=== PATIENT | female | born 1980 | race Caucasian/White ===

== ENCOUNTER 2022-01-05 17:09 | Emergency (ER) | payer OTHER ==
--- NOTE | 2022-01-05 18:53 | XR ---
EXAMINATION TYPE: XR Hip Complete LT DATE OF EXAM: 01/05/2022 6:11 PM INDICATION: Patient age:Female; 42 years old; Reason for study: pain; COMPARISON: None. TECHNIQUE: The left hip was examined in the frontal and lateral projections FINDINGS: No evidence of any acute osseous pathology, joint dislocation, or soft tissue swelling. IMPRESSION: No acute osseous pathology.
[2022-01-05] MEDS ORDERED: ONDANSETRON 4 MG ODT STARTER PACK 2 TAB BTL PO STA (20:22)
[2022-01-05] MEDS ORDERED: HYDROmorphone 1 MG/ML 1 ML SYRINGE IM STA (20:22)
--- NOTE | 2022-01-05 20:24 | ED ---
General Adult HPI - General Chief complaint: Extremity Problem,Nontraumatic Stated complaint: Hip pain Time Seen by Provider: 01/05/22 20:04 Source: patient, RN notes reviewed Mode of arrival: wheelchair Limitations: no limitations - History of Present Illness Initial comments: 42-year-old female presents to the emergency department for evaluation of left hip pain that radiates to the groin and the back. Pain has been ongoing for the past 3 weeks and has progressively worsened. States she was recently prescribed a steroid by her PCP, though feels that this did nothing for her. Patient takes Motrin, Neurontin, and Flexeril daily for other non-related complaints. Denies any recent injury or trauma. States pain is worse with weight bearing activity. Denies fever, chills, chest pain, shortness of breath, difficulty breathing, abdominal pain, nausea, vomiting, diarrhea, loss of bowel or bladder control, saddle anesthesia, or foot drop. - Related Data Home Medications Medication Instructions Recorded Confirmed Atorvastatin Calcium [Lipitor] 40 mg PO HS 01/05/22 01/05/22 Cyclobenzaprine [Flexeril] 10 mg PO TID 01/05/22 01/05/22 Fluticasone Nasal [place] [Flonase 1 spray EA NOSTRIL DAILY 01/05/22 01/05/22 Nasal [place]] Gabapentin [Neurontin] 600 mg PO TID 01/05/22 01/05/22 Ibuprofen [Motrin] 800 mg PO TID PRN 01/05/22 01/05/22 Lurasidone [Latuda] 80 mg PO HS 01/05/22 01/05/22 Multivitamins, Thera [Multivitamin 1 tab PO DAILY 01/05/22 01/05/22 (formulary)] Omeprazole 20 mg PO DAILY 01/05/22 01/05/22 Propranolol HCl 20 mg PO TID 01/05/22 01/05/22 Venlafaxine HCl ER [Effexor Xr] 150 mg PO DAILY 01/05/22 01/05/22 hydrOXYzine pamoate [Vistaril] 150 mg PO HS 01/05/22 01/05/22 traZODone HCL 200 mg PO HS 01/05/22 01/05/22 Allergies Allergy/AdvReac Type Severity Reaction Status Date / Time Penicillins Allergy Anaphylaxis Verified 03/17/22 23:31 Sulfa (Sulfonamide Allergy Rash/Hives Verified 01/05/22 21:44 Antibiotics) Review of Systems ROS Statement: Those systems with pertinent positive or pertinent negative responses have been documented in the HPI. ROS Other: All systems not noted in ROS Statement are negative. Past Medical History Past Medical History: GERD/Reflux, Hyperlipidemia, Hypertension, Supraventricular Tachycardia (SVT) Additional Past Medical History / Comment(s): chronic back pain History of Any Multi-Drug Resistant Organisms: None Reported Past Psychological History: Bipolar, Depression Smoking Status: Vaper Past Alcohol Use History: None Reported Past Drug Use History: None Reported General Exam Limitations: no limitations (Well-developed, well-nourished female in no acute distress. Initial temperature and 1, respirations 16, blood pressure 156, pulse ox 99% on room air.) General appearance: alert, in no apparent distress Neck exam: Present: normal inspection. Absent: tenderness, meningismus, lymphadenopathy Respiratory exam: Present: normal lung sounds bilaterally. Absent: respiratory distress, wheezes, rales, rhonchi, stridor Cardiovascular Exam: Present: regular rate, normal rhythm, normal heart sounds. Absent: systolic murmur, diastolic murmur, rubs, gallop, clicks GI/Abdominal exam: Present: soft, normal bowel sounds. Absent: distended, tenderness, guarding, rebound, rigid Extremities exam: Present: normal capillary refill. Absent: pedal edema Left Hip exam: Present: normal inspection, pelvic stability. Absent: full ROM, tenderness, swelling, deformity, external rotation, internal rotation, shortening Upper Leg exam: Present: normal inspection, full ROM. Absent: tenderness, swelling Knee exam: Present: normal inspection, full ROM. Absent: tenderness, swelling Lower Leg exam: Present: normal inspection, full ROM. Absent: tenderness, swelling, Homans' sign Ankle exam: Present: normal inspection, full ROM. Absent: tenderness, swelling Foot/Toe exam: Present: normal inspection, full ROM. Absent: tenderness, swelling Neurovascular tendon exam: Present: no vascular compromise. Absent: sensory deficit Back exam: Present: normal inspection, paraspinal tenderness ( pain upon palpation of the right lumbar paraspinal muscles). Absent: CVA tenderness (R), CVA tenderness (L), vertebral tenderness Expanded Back exam: Absent: saddle anesthesia Back exam: Positive Straight Leg Raise: Right, Negative Straight Leg Raising: Left Neurological exam: Present: alert, oriented X3 Psychiatric exam: Present: anxious Skin exam: Present: warm, dry, intact, normal color Course Vital Signs 01/05/22 01/05/22 17:42 22:58 Temperature 98 F 97.7 F Pulse Rate 91 85 Respiratory 16 18 Rate Blood Pressure 118/76 125/60 O2 Sat by Pulse 99 95 Oximetry - Reevaluation(s) Reevaluation #1: 01/05/22 22:30 Upon reevaluation, patient is resting much more comfortably. States pain is tolerable and She is able to move more freely. Discussed discharge home to keep follow-up appointment as scheduled with her neurologist. Discussed radiculopathy nature of the pain she is experiencing based on the physical exam findings. Suggested a repeat course of steroid as patient is already taking an anti-inflammatory and muscle relaxer; she declines. Explained that no narcotic pain medications would be prescribed and that she would need to follow up for further evaluation and treatment. Patient was agreeable with this plan of care. Medical Decision Making - Medical Decision Making 42-year-old female with a past medical history of chronic back pain and seizure disorder presents to the emergency Department with complaints of left hip pain 3 weeks. Upon exam, patient is well-appearing and in no distress. She does rate her pain a 9 out of 10 at this time. Physical exam findings reveal a positive straight leg raise test in which elevating the left leg caused the pain to be reproduced in the right. There was no injury preceding the onset of pain. There is no observable joint abnormality. Hip x-ray was unremarkable. Patient is afebrile with no foot drop, saddle anesthesia, or loss of bowel or bladder control. Patient is already taking Motrin, Flexeril, Neurontin for chronic low back pain. She was given a dose of Dilaudid with significant improvement. Mcintosh was given prior to departure for further pain control. I explained that no narcotics would be prescribed from the ER and that she should continue taking her home medications as prescribed. Did discuss a repeat course of oral steroid, however patient declined as this was ineffective previously. Encouraged to keep follow-up appointment with neurologist as scheduled. Also given follow-up with orthopedics as requested. Return parameters were discussed in detail. Patient verbalizes understanding and agrees with this plan. Attending: Hunter. - Radiology Data Radiology results: report reviewed, image reviewed X-ray of the left hip was obtained. Report was reviewed in its entirety. Impression per Dr. Hein is no acute osseous pathology. Disposition Clinical Impression: Left hip pain, Lumbar radiculopathy, acute Disposition: HOME SELF-CARE Condition: Stable Instructions (If sedation given, give patient instructions): Lumbar Radiculopathy (ED), Hip Pain (ED) Additional Instructions: Gentle range of motion exercises to the left hip. Continue taking your home medications as prescribed. Follow up as scheduled. Call your PCP for further evaluation and treatment. Return to the emergency department with any new, worsening, or concerning symptoms. Is patient prescribed a controlled substance at d/c from ED?: No Referrals: Kate Lopez MD [Primary Care Provider] - 1-2 days [facility] [Provider Group] - 1-2 days Time of Disposition: 22:50
[2022-01-05] MEDS ORDERED: HYDROcodone/APAP 5-325MG 1 EACH TAB PO STA (22:39)
[2022-01-05 23:02] VITALS: BP 125/60; PULSE 85; RESP 18; TEMP 97.7
== END 2022-01-05 23:02 | disposition home or self-care (01) ==
LOC: EC 17:09
DX: M25.552 Pain in left hip (principal); M54.16 Radiculopathy, lumbar region; K21.9 Gastro-esophageal reflux disease without esophagitis; E78.5 Hyperlipidemia, unspecified; I10 Essential (primary) hypertension; F31.9 Bipolar disorder, unspecified; F17.290 Nicotine dependence, other tobacco product, uncomplicated; Z88.0 Allergy status to penicillin; Z88.2 Allergy status to sulfonamides
CPT/HCPCS: 99284; 96372; 73502; J1170; S0119

== ENCOUNTER → 2024-01-04 | Outpatient (CLI) | payer OTHER ==
--- NOTE | 2024-01-07 15:37 | US ---
EXAMINATION TYPE: US abdomen limited DATE OF EXAM: 01/04/2024 COMPARISON: NONE CLINICAL INDICATION: Female, 44 years old with history of Z78.9 OTHER SPECIFIED ABNORMAL FINDINGS OF BR79.89; LFT's, alcohol TECHNIQUE: Multiple sonographic images of the right upper quadrant are obtained. FINDINGS: EXAM MEASUREMENTS: Liver Length: 20.1 cm Gallbladder Wall: 0.2 cm CBD: 0.5 cm Right Kidney: 10.4x3.2x5.8 cm PER DIEM CLERK NOTES: exam limited by bowel and body habitus Pancreas: Surgically absent Liver: increased size, echogenicity, and attenuation Gallbladder: 1.6 cm gallstone. No abnormal distention, wall thickening, or surrounding fluid. Evidence for sonographic Marti's sign: No CBD: wnl Right Kidney: No hydronephrosis or masses seen IMPRESSION: 1. Hepatomegaly at 20.1 cm with moderate to severe hepatic steatosis. Appropriate clinical management is advised. 2. A 1.6 cm gallstone. 3. No biliary ductal dilatation.
== END | disposition home or self-care (01) ==
LOC: RADUSWWP 12:08
PROVIDERS: ATTEND Family Medicine
DX: K80.20 Calculus of gallbladder without cholecystitis without obstruction (principal); K76.0 Fatty (change of) liver, not elsewhere classified; R16.0 Hepatomegaly, not elsewhere classified; R79.89 Other specified abnormal findings of blood chemistry; Z78.9 Other specified health status
CPT/HCPCS: 76705

== ENCOUNTER → 2024-02-18 | Outpatient (CLI) | payer OTHER ==
--- NOTE | 2024-02-18 18:12 | US ---
EXAMINATION TYPE: US thyroid st tissue head/neck DATE OF EXAM: 02/18/2024 COMPARISON: NONE CLINICAL INDICATION: Female, 44 years old with history of E04.1 THYROID NODULE; Oropharyngeal dysphag ia GLAND SIZE: Right Lobe: 4.8 x 1.6 x 1.6 cm Overall Parenchyma: heterogeneous Left Lobe: 3.6 x 1.4 x 1.5 cm Overall Parenchyma: heterogeneous Isthmus Thickness: 0.2 cm NODULES RIGHT: # of nodules measured on right: 0 LEFT: # of nodules measured on left: 1 1. 0.7 X 0.3 x 0.2 cm, mid mid Prior size: No prior TIRADS Score: 3 TIRADS Category 3: Composition: Solid or almost completely solid (2 points). Echogenicity: Hyperechoic or isoechoic (1 point). Shape: Wider than tall (0 points). Margin: Smooth (0 points). Echogenic foci: None or large comet-tail artifacts (0 points) Recommendation: If >2.5cm: FNA; If >1.5cm: Follow up at 1,3,5 years ISTHMUS: # of nodules measured in the isthmus: 0 Bilateral neck scanned, *Hypoechoic area seen lateral right neck: 1.2 x 0.5 x 0.5 cm. IMPRESSION: Left thyroid nodule image criteria for follow-up.
== END | disposition home or self-care (01) ==
LOC: RADUSWWP 15:18
PROVIDERS: ATTEND Family Medicine
DX: E04.1 Nontoxic single thyroid nodule (principal); R13.12 Dysphagia, oropharyngeal phase
CPT/HCPCS: 76536

== ENCOUNTER 2024-03-17 17:36 | Emergency (ER) | payer OTHER ==
--- NOTE | 2024-03-17 18:25 | ED ---
Weakness HPI - General Chief complaint: Neuro Symptoms/Deficit Stated complaint: Constipation Time Seen by Provider: 03/17/24 17:49 Source: patient, family, RN notes reviewed, old records reviewed Mode of arrival: ambulatory Limitations: no limitations - History of Present Illness Initial comments: This 44-year-old female to the ER for evaluation. Patient midstate for evaluation of any numbness and tingling of the hands. Severe pain of both hands numbness tingling of the fingers going on for 6 days with decreased appetite decreased oral intake and has not been feeling well. Patient also states she feels she has not had a significant bowel movement in about over a week patient has high blood pressure and high cholesterol with no history abdominal surgery MD Complaint: generalized weakness, numbness, tingling (Numbness and tingling of the hands) -: days(s) Location: generalized, L hand, R hand Severity: moderate Severity scale (1-10): 7 Consistency: constant Improves with: none Context: recent illness, history of similar Associated Symptoms: chest pain - Related Data Home Medications Medication Instructions Recorded Confirmed Atorvastatin Calcium [Lipitor] 40 mg PO HS 01/05/22 01/08/22 Cyclobenzaprine [Flexeril] 10 mg PO TID 01/05/22 01/08/22 Fluticasone Nasal [place] [Flonase 1 spray EA NOSTRIL DAILY 01/05/22 01/08/22 Nasal [place]] Gabapentin [Neurontin] 600 mg PO TID 01/05/22 01/08/22 Ibuprofen [Motrin] 800 mg PO TID PRN 01/05/22 01/08/22 Lurasidone [Latuda] 80 mg PO HS 01/05/22 01/08/22 Multivitamins, Thera [Multivitamin 1 tab PO DAILY 01/05/22 01/08/22 (formulary)] Omeprazole 20 mg PO DAILY 01/05/22 01/08/22 Propranolol HCl 20 mg PO TID 01/05/22 01/08/22 Venlafaxine HCl ER [Effexor Xr] 150 mg PO DAILY 01/05/22 01/08/22 hydrOXYzine pamoate [Vistaril] 150 mg PO HS 01/05/22 01/08/22 traZODone HCL 200 mg PO HS 01/05/22 01/08/22 Allergies Allergy/AdvReac Type Severity Reaction Status Date / Time Penicillins Allergy Anaphylaxis Verified 01/08/22 14:13 Sulfa (Sulfonamide Allergy Rash/Hives Verified 01/08/22 14:13 Antibiotics) Review of Systems ROS Statement: Those systems with pertinent positive or pertinent negative responses have been documented in the HPI. ROS Other: All systems not noted in ROS Statement are negative. Past Medical History Past Medical History: GERD/Reflux, Hyperlipidemia, Hypertension, Supraventricular Tachycardia (SVT) Additional Past Medical History / Comment(s): chronic back pain History of Any Multi-Drug Resistant Organisms: None Reported Past Surgical History: Orthopedic Surgery Past Psychological History: Bipolar, Depression Smoking Status: Vaper Past Alcohol Use History: None Reported Past Drug Use History: None Reported General Exam Limitations: no limitations General appearance: alert, in no apparent distress Head exam: Present: atraumatic, normocephalic, normal inspection Eye exam: Present: normal appearance, PERRL, EOMI. Absent: scleral icterus, conjunctival injection, periorbital swelling ENT exam: Present: normal exam, mucous membranes moist Neck exam: Present: normal inspection. Absent: tenderness, meningismus, lymphadenopathy Respiratory exam: Present: normal lung sounds bilaterally. Absent: respiratory distress, wheezes, rales, rhonchi, stridor Cardiovascular Exam: Present: regular rate, normal rhythm, normal heart sounds. Absent: systolic murmur, diastolic murmur, rubs, gallop, clicks GI/Abdominal exam: Present: soft, normal bowel sounds. Absent: distended, tenderness, guarding, rebound, rigid Extremities exam: Present: normal inspection, full ROM, normal capillary refill. Absent: tenderness, pedal edema, joint swelling, calf tenderness Back exam: Present: normal inspection Neurological exam: Present: alert, oriented X3, CN II-XII intact Psychiatric exam: Present: normal affect, normal mood Skin exam: Present: warm, dry, intact, normal color. Absent: rash Course Vital Signs 03/17/24 03/17/24 17:41 22:05 Temperature 98.6 F 98.3 F Pulse Rate 110 H 99 Respiratory 20 16 Rate Blood Pressure 115/69 131/80 O2 Sat by Pulse 998 H 95 Oximetry - Reevaluation(s) Reevaluation #1: 03/17/24 18:25 Medical records reviewed Reevaluation #2: 03/17/24 21:53 Patient symptoms are improved here in the ER Reevaluation #3: 03/17/24 21:53 Patient informed of results questions answered Reevaluation #4: Was pt. sent in by a medical professional or institution (JAZ Palomo, INSTRUMENT CALIBRATOR, urgent care, hospital, or custodial...) When possible be specific @ -no Did you speak to anyone other than the patient for history (EMS, parent, family, police, friend...)? What history was obtained from this source @ -no Did you review nursing and triage notes (agree or disagree)? Why? @ -agree Are old charts reviewed (outside hosp., previous admission, EMS record, old EKG, old radiological studies, urgent care reports/EKG's, custodial records)? Report findings @ -yes Differential Diagnosis (chest pain, altered mental status, abdominal pain women, abdominal pain men, vaginal bleeding, weakness, fever, dyspnea, syncope, headache, dizziness, GI bleed, back pain, seizure, CVA, palpatations, mental health, musculoskeletal)? @ -prior EKG interpreted by me (3pts min.). @ -yes X-rays interpreted by me (1pt min.). @ -yes negative for acute disease CT interpreted by me (1pt min.). @ -no U/S interpreted by me (1pt. min.). @ -Yes negative for acute disease What testing was considered but not performed or refused? (CT, X-rays, U/S, labs)? Why? @ -none What meds were considered but not given or refused? Why? @ -none Did you discuss the management of the patient with other professionals (professionals i.e. JAZ Palomo, INSTRUMENT CALIBRATOR, lab, RT, psych nurse, executive secretary social welfare, plant guide, teacher, bank compliance officer, case work aide)? Give summary @ -no Was smoking cessation discussed for >3mins.? @ -no Was critical care preformed (if so, how long)? @ -no Were there social determinants of health that impacted care today? How? (Homelessness, low income, unemployed, alcoholism, drug addiction, transportation, low edu. Level, literacy, decrease access to med. care, [facility], rehab)? @ -none Was there de-escalation of care discussed even if they declined (Discuss DNR or withdrawal of care, Hospice)? DNR status @ -no What co-morbidities impacted this encounter? (DM, HTN, Smoking, COPD, CAD, Cancer, CVA, ARF, Chemo, Hep., AIDS, mental health diagnosis, sleep apnea, morbid obesity)? @ -none Was patient admitted / discharged? Hospital course, mention meds given and route, prescriptions, significant lab abnormalities, going to OR and other pertinent info. @ - 44 female to the ER for evaluation of numbness and tingling abdominal pain no history of recent bowel movement. Patient states she feels improved here in the ER and can be discharged home Discharge Undiagnosed new problem with uncertain prognosis? @ -no Drug Therapy requiring intensive monitoring for toxicity (Heparin, Nitro, Insulin, Cardizem)? @ -no Were any procedures done? @ -no Diagnosis/symptom? @ -Paresthesias, abdominal pain Acute, or Chronic, or Acute on Chronic? @ -Acute Uncomplicated (without systemic symptoms) or Complicated (systemic symptoms)? @ -Complicated Side effects of treatment? @ -no Exacerbation, Progression, or Severe Exacerbation? @ -exacerbation Poses a threat to life or bodily function? How? (Chest pain, [place], [place], pneumonia, PE, COPD, DKA, ARF, appy, cholecystitis, CVA, Diverticulitis, Homicidal, Suic idal, threat to staff... and all critical care pts) @ -yes with multiple complaints including abdominal pain and chest pain Reevaluation #5: Differential Abdominal Pain Men: Appendicitis, cholecystitis, diverticulosis, ischemic bowel, pancreatitis, hepatitis, UTI, gastroenteritis, AAA, incarcerated hernia, bowel obstruction, constipation, inflammatory bowel, hepatitis, peptic ulcer disease, splenic infarction, perforated viscus, testicular torsion, this is not meant to be an all-inclusive list EKG Findings - EKG Comments: EKG Findings:: EKG is sinus tachycardia 102 KS 148 QRS 82 QTc 452 - EKG Results: EKG: interpreted by DIANA Medical Decision Making - Medical Decision Making 44 female to the ER for evaluation of numbness and tingling abdominal pain no history of recent bowel movement. Patient states she feels improved here in the ER and can be discharged home - Lab Data Result diagrams: 03/17/24 18:55 03/17/24 18:55 Lab Results 03/17/24 03/17/24 03/17/24 Range/Units 18:55 18:55 18:55 WBC 13.5 H (3.8-10.6) k/uL RBC 4.64 (3.80-5.40) m/uL Hgb 14.3 (11.4-16.0) gm/dL Hct 46.3 H (34.0-46.0) % MCV 99.8 (80.0-100.0) fL MCH 30.9 (25.0-35.0) pg MCHC 30.9 L (31.0-37.0) g/dL RDW 16.2 H (11.5-15.5) % Plt Count 475 H (150-450) k/uL MPV 7.6 Neutrophils % 72 % Lymphocytes % 18 % Monocytes % 7 % Eosinophils % 1 % Basophils % 1 % Neutrophils # 9.7 H (1.3-7.7) k/uL Lymphocytes # 2.5 (1.0-4.8) k/uL Monocytes # 0.9 (0-1.0) k/uL Eosinophils # 0.1 (0-0.7) k/uL Basophils # 0.1 (0-0.2) k/uL Anisocytosis Slight Macrocytosis Slight PT 11.3 (10.0-12.5) sec INR 1.0 (<1.2) APTT 27.4 (22.0-30.0) sec Sodium 139 (137-145) mmol/L Potassium 3.6 (3.5-5.1) mmol/L Chloride 102 (98-107) mmol/L Carbon Dioxide 28 (22-30) mmol/L Anion Gap 9 mmol/L BUN 3 L (7-17) mg/dL Creatinine 0.38 L (0.52-1.04) mg/dL Est GFR (CKD-EPI)AfAm >90 (>60 ml/min/1.73 sqM) Est GFR (CKD-EPI)NonAf >90 (>60 ml/min/1.73 sqM) Glucose 100 H (74-99) mg/dL Lactic Ac Sepsis Rflx Plasma Lactic Acid Jose Luis (0.7-2.0) mmol/L Calcium 9.0 (8.4-10.2) mg/dL Phosphorus 3.9 (2.5-4.5) mg/dL Magnesium 1.9 (1.6-2.3) mg/dL Total Bilirubin 1.4 H (0.2-1.3) mg/dL AST 183 H (14-36) U/L ALT 43 H (4-34) U/L Alkaline Phosphatase 260 H (38-126) U/L Troponin I (0.000-0.034) ng/mL NT-Pro-B Natriuret Pep 296 pg/mL Total Protein 8.4 H (6.3-8.2) g/dL Albumin 3.8 (3.5-5.0) g/dL 03/17/24 03/17/24 03/17/24 Range/Units 18:55 18:55 19:30 WBC (3.8-10.6) k/uL RBC (3.80-5.40) m/uL Hgb (11.4-16.0) gm/dL Hct (34.0-46.0) % MCV (80.0-100.0) fL MCH (25.0-35.0) pg MCHC (31.0-37.0) g/dL RDW (11.5-15.5) % Plt Count (150-450) k/uL MPV Neutrophils % % Lymphocytes % % Monocytes % % Eosinophils % % Basophils % % Neutrophils # (1.3-7.7) k/uL Lymphocytes # (1.0-4.8) k/uL Monocytes # (0-1.0) k/uL Eosinophils # (0-0.7) k/uL Basophils # (0-0.2) k/uL Anisocytosis Macrocytosis PT (10.0-12.5) sec INR (<1.2) APTT (22.0-30.0) sec Sodium (137-145) mmol/L Potassium (3.5-5.1) mmol/L Chloride (98-107) mmol/L Carbon Dioxide (22-30) mmol/L Anion Gap mmol/L BUN (7-17) mg/dL Creatinine (0.52-1.04) mg/dL Est GFR (CKD-EPI)AfAm (>60 ml/min/1.73 sqM) Est GFR (CKD-EPI)NonAf (>60 ml/min/1.73 sqM) Glucose (74-99) mg/dL Lactic Ac Sepsis Rflx Y Plasma Lactic Acid Jose Luis 3.7 H* (0.7-2.0) mmol/L Calcium (8.4-10.2) mg/dL Phosphorus (2.5-4.5) mg/dL Magnesium (1.6-2.3) mg/dL Total Bilirubin (0.2-1.3) mg/dL AST (14-36) U/L ALT (4-34) U/L Alkaline Phosphatase (38-126) U/L Troponin I <0.012 (0.000-0.034) ng/mL NT-Pro-B Natriuret Pep pg/mL Total Protein (6.3-8.2) g/dL Albumin (3.5-5.0) g/dL 03/17/24 Range/Units 21:38 WBC (3.8-10.6) k/uL RBC (3.80-5.40) m/uL Hgb (11.4-16.0) gm/dL Hct (34.0-46.0) % MCV (80.0-100.0) fL MCH (25.0-35.0) pg MCHC (31.0-37.0) g/dL RDW (11.5-15.5) % Plt Count (150-450) k/uL MPV Neutrophils % % Lymphocytes % % Monocytes % % Eosinophils % % Basophils % % Neutrophils # (1.3-7.7) k/uL Lymphocytes # (1.0-4.8) k/uL Monocytes # (0-1.0) k/uL Eosinophils # (0-0.7) k/uL Basophils # (0-0.2) k/uL Anisocytosis Macrocytosis PT (10.0-12.5) sec INR (<1.2) APTT (22.0-30.0) sec Sodium (137-145) mmol/L Potassium (3.5-5.1) mmol/L Chloride (98-107) mmol/L Carbon Dioxide (22-30) mmol/L Anion Gap mmol/L BUN (7-17) mg/dL Creatinine (0.52-1.04) mg/dL Est GFR (CKD-EPI)AfAm (>60 ml/min/1.73 sqM) Est GFR (CKD-EPI)NonAf (>60 ml/min/1.73 sqM) Glucose (74-99) mg/dL Lactic Ac Sepsis Rflx Plasma Lactic Acid Jose Luis 1.0 (0.7-2.0) mmol/L Calcium (8.4-10.2) mg/dL Phosphorus (2.5-4.5) mg/dL Magnesium (1.6-2.3) mg/dL Total Bilirubin (0.2-1.3) mg/dL AST (14-36) U/L ALT (4-34) U/L Alkaline Phosphatase (38-126) U/L Troponin I (0.000-0.034) ng/mL NT-Pro-B Natriuret Pep pg/mL Total Protein (6.3-8.2) g/dL Albumin (3.5-5.0) g/dL - EKG Data -: EKG Interpreted by Me - Radiology Data Radiology results: report reviewed (X-ray KUB and chest negative for acute disease pelvis ultrasound gallbladder negative for acute disease), image reviewed Disposition Clinical Impression: Paresthesia and pain of both upper extremities, Abdominal pain, Neuropathy Disposition: HOME SELF-CARE Condition: Good Instructions (If sedation given, give patient instructions): Paresthesia (ED), Abdominal Pain (ED) Is patient prescribed a controlled substance at d/c from ED?: No Referrals: Kate Lopez MD [Primary Care Provider] - 1-2 days Time of Disposition: 22:00
[2024-03-17] MEDS: SODIUM CHLORIDE 0.9% 1,000 ML IV STA ×2 (18:58→21:07)
[2024-03-17 19:04] LABS: Anisocytosis Slight; Basophils # (A) 0.1 k/uL (0-0.2); Basophils % (A) 1 %; Eosinophils # (A) 0.1 k/uL (0-0.7); Eosinophils % (A) 1 %; HCT 46.3 % (34.0-46.0); HGB 14.3 gm/dL (11.4-16.0); Lymphocytes # (A) 2.5 k/uL (1.0-4.8); Lymphocytes % (A) 18 %; MCH 30.9 pg (25.0-35.0); MCHC 30.9 g/dL (31.0-37.0); MCV 99.8 fL (80.0-100.0); Macrocytosis Slight; Mean Platelet Volume 7.6; Monocytes # (A) 0.9 k/uL (0-1.0); Monocytes % (A) 7 %; Neutrophils # (A) 9.7 k/uL (1.3-7.7); Neutrophils % (A) 72 %; Platelet Count 475 k/uL (150-450); RBC 4.64 m/uL (3.80-5.40); RDW 16.2 % (11.5-15.5); WBC 13.5 k/uL (3.8-10.6)
[2024-03-17 19:13] LABS: Partial Thromboplastin Time 27.4 sec (22.0-30.0); Prothrombin Time 11.3 sec (10.0-12.5)
[2024-03-17 19:17] LABS: ALT 43 U/L (4-34); African American GFR (CKD) >90 (>60 ml/min/1.73 sqM); Albumin 3.8 g/dL (3.5-5.0); Anion Gap 9 mmol/L; Blood Urea Nitrogen 3 mg/dL (7-17); Carbon Dioxide 28 mmol/L (22-30); Chloride 102 mmol/L (98-107); Glucose 100 mg/dL (74-99); Non-African American GFR(CKD) >90 (>60 ml/min/1.73 sqM); Phosphorus 3.9 mg/dL (2.5-4.5); Sodium 139 mmol/L (137-145); Total Bilirubin 1.4 mg/dL (0.2-1.3); Total Protein 8.4 g/dL (6.3-8.2)
[2024-03-17 19:18] LABS: AST 183 U/L (14-36); Alkaline Phosphatase 260 U/L (38-126); Magnesium 1.9 mg/dL (1.6-2.3); Potassium 3.6 mmol/L (3.5-5.1)
[2024-03-17 19:25] LABS: NT-Pro-B-Type Natriuretic Pept 296 pg/mL
--- NOTE | 2024-03-17 19:45 | XR ---
EXAMINATION TYPE: XR chest 2V DATE OF EXAM: 03/17/2024 6:46 PM CLINICAL INDICATION:Female, 44 years old with history of pain; [facility] COMPARISON: None TECHNIQUE: XR chest 2V Frontal and lateral views of the chest. FINDINGS: Lungs/Pleura: There is no evidence of pleural effusion, focal consolidation, or pneumothorax. Pulmonary vascularity: Unremarkable. Heart/mediastinum: Cardiomediastinal silhouette is unremarkable. Musculoskeletal: No acute osseous pathology. IMPRESSION: No acute cardiopulmonary disease/process.
--- NOTE | 2024-03-17 19:46 | XR ---
EXAMINATION TYPE: XR KUB DATE OF EXAM: 03/17/2024 6:46 PM CLINICAL INDICATION:Female, 44 years old with history of pain; [facility] COMPARISON: None. TECHNIQUE: One radiographic view of the abdomen was obtained. FINDINGS: The bowel gas pattern is nonspecific without dilated loops of small or large bowel. There i s no evidence for organomegaly or pneumoperitoneum. The osseous structures are intact. No abnormal calcifications are present. Fecal material and gas are demonstrated throughout the colon and rectum. Left hip fixation hardware appears intact. IMPRESSION: Nonspecific bowel gas pattern without radiographic evidence for acute process.
[2024-03-17] MEDS: SODIUM CHLORIDE 0.9% 500 ML 500 ML IV STA (21:07)
--- NOTE | 2024-03-17 21:26 | US ---
EXAMINATION TYPE: US gallbladder DATE OF EXAM: 03/17/2024 COMPARISON: NONE CLINICAL INDICATION: Female, 44 years old with history of pain; pain gallstones exam limited due to b melony habitus. TECHNIQUE: Multiple sonographic images of the right upper quadrant are obtained. FINDINGS: EXAM MEASUREMENTS: Liver Length: 21.4 cm Gallbladder Wall: .3 cm CBD: .5 cm Right Kidney: 10.6 x 3.9 x 4.4 cm MENTAL MEASUREMENTS TEACHER NOTES: Pancreas: Obscured by bowel gas Liver: Increased attenuation hepatomegaly Gallbladder: Stone visualized Evidence for sonographic Marti's sign: no CBD: wnl Right Kidney: No hydronephrosis or masses seen IMPRESSION: 1. Cholelithiasis. 2. Hepatic steatosis 3. Hepatomegaly
[2024-03-17 22:29] VITALS: BP 131/80; PULSE 99; RESP 16; TEMP 98.3
== END 2024-03-17 22:12 | disposition home or self-care (01) ==
LOC: EC 17:36
DX: M79.642 Pain in left hand (principal); M79.641 Pain in right hand; R10.9 Unspecified abdominal pain; G62.9 Polyneuropathy, unspecified; F17.290 Nicotine dependence, other tobacco product, uncomplicated; Z88.0 Allergy status to penicillin; Z88.2 Allergy status to sulfonamides
CPT/HCPCS: 36415; 71046; 74018; 76705; 80053; 83605; 83735; 83880; 84100; 84484; 85025; 85610; 85730; 93005; 99284

== ENCOUNTER 2024-03-29 15:23 | Emergency (ER) | payer OTHER ==
[2024-03-29 15:45] VITALS: TEMP 98.6
--- NOTE | 2024-03-29 16:15 | ED ---
General Adult HPI - General Chief complaint: Neuro Symptoms/Deficit Stated complaint: hands are numb Time Seen by Provider: 03/29/24 15:48 Source: patient, family Mode of arrival: wheelchair Limitations: no limitations - History of Present Illness Initial comments: Dictation was produced using [employer] dictation software. please excuse any grammatical, word or spelling errors. Chief Complaint: 44-year-old female with neuropathy History of Present Illness: Patient is a 44-year-old female presents to the emergency department for neuropathy. Patient for the last several days has been having burning numbing painful sensations to her both hands and both feet. Patient has a history of neuropathy. She does take gabapentin. She has her medications managed by her primary care doctor. Patient denies any other complaints. The ROS documented in this emergency department record has been reviewed and confirmed by me. Those systems with pertinent positive or negative responses have been documented in the HPI. All other systems are other negative and/or noncontributory. - Related Data Home Medications Medication Instructions Recorded Confirmed Atorvastatin Calcium [Lipitor] 40 mg PO HS 01/05/22 01/08/22 Cyclobenzaprine [Flexeril] 10 mg PO TID 01/05/22 01/08/22 Fluticasone Nasal [place] [Flonase 1 spray EA NOSTRIL DAILY 01/05/22 01/08/22 Nasal [place]] Gabapentin [Neurontin] 600 mg PO TID 01/05/22 01/08/22 Ibuprofen [Motrin] 800 mg PO TID PRN 01/05/22 01/08/22 Lurasidone [Latuda] 80 mg PO HS 01/05/22 01/08/22 Multivitamins, Thera [Multivitamin 1 tab PO DAILY 01/05/22 01/08/22 (formulary)] Omeprazole 20 mg PO DAILY 01/05/22 01/08/22 Propranolol HCl 20 mg PO TID 01/05/22 01/08/22 Venlafaxine HCl ER [Effexor Xr] 150 mg PO DAILY 01/05/22 01/08/22 hydrOXYzine pamoate [Vistaril] 150 mg PO HS 01/05/22 01/08/22 traZODone HCL 200 mg PO HS 01/05/22 01/08/22 Allergies Allergy/AdvReac Type Severity Reaction Status Date / Time Penicillins Allergy Anaphylaxis Verified 01/08/22 14:13 Sulfa (Sulfonamide Allergy Rash/Hives Verified 01/08/22 14:13 Antibiotics) Review of Systems ROS Statement: Those systems with pertinent positive or pertinent negative responses have been documented in the HPI. ROS Other: All systems not noted in ROS Statement are negative. Past Medical History Past Medical History: GERD/Reflux, Hyperlipidemia, Hypertension, Supraventricular Tachycardia (SVT) Additional Past Medical History / Comment(s): chronic back pain History of Any Multi-Drug Resistant Organisms: None Reported Past Surgical History: Orthopedic Surgery Past Psychological History: Bipolar, Depression Smoking Status: Vaper Past Alcohol Use History: None Reported Past Drug Use History: None Reported General Exam - General Exam Comments Initial Comments: PHYSICAL EXAM: General Impression: Alert and oriented x3, not in acute distress HEENT: Normocephalic atraumatic, extra-ocular movements intact, pupils equal and reactive to light bilaterally, mucous membranes moist. Cardiovascular: Heart regular rate and rhythm Chest: Able to complete full sentences, no retractions, no tachypnea Abdomen: abdomen soft, non-tender, non-distended, no organomegaly Musculoskeletal: Pulses present and equal in all extremities, no peripheral edema Motor: no focal deficits noted Neurological: CN II-XII grossly intact, no focal motor or sensory deficits noted Skin: Intact with no visualized rashes Psych: Normal affect and mood Limitations: no limitations Course Vital Signs 03/29/24 15:42 Temperature 98.6 F Pulse Rate 110 H Respiratory 20 Rate Blood Pressure 132/83 O2 Sat by Pulse 97 Oximetry Medical Decision Making - Medical Decision Making Was pt. sent in by a medical professional or institution (, PA, DIAGNOSTIC CARDIAC SONOGRAPHER, urgent care, hospital, or [facility]cc...) When possible be specific @ -No Did you speak to anyone other than the patient for history (EMS, parent, family, police, friend...)? What history was obtained from this source @ -No Did you review nursing and triage notes (agree or disagree)? Why? @ -I reviewed and agree with nursing and triage notes Were old charts reviewed (outside hosp., previous admission, EMS record, old EKG, old radiological studies, urgent care reports/EKG's, [facility]cc records)? Report findings @ -No old charts were reviewed Differential Diagnosis (chest pain, altered mental status, abdominal pain women, abdominal pain men, vaginal bleeding, musculoskeletal, weakness, fever, dyspnea, syncope, headache, dizziness, GI bleed, back pain, seizure, CVA, palpatations, mental health)? @ -Differential musculoskeletal EKG interpreted by me (3pts min.). @ -None done X-rays interpreted by me (1pt min.). @ -None done CT interpreted by me (1pt min.). @ -None done U/S interpreted by me (1pt. min.). @ -None done What testing was considered but not performed or refused? (CT, X-rays, U/S, labs)? Why? @ -None What meds were considered but not given or refused? Why? @ -None Did you discuss the management of the patient with other professionals (professionals i.e. , PA, DIAGNOSTIC CARDIAC SONOGRAPHER, lab, RT, psych nurse, medical social consultant, care manager cna, teacher, police officer, outsole caser)? Give summary @ -No Was smoking cessation discussed for >3mins.? @ -No Was critical care preformed (if so, how long)? @ -No Were there social determinants of health that impacted care today? How? (Homelessness, low income, unemployed, alcoholism, drug addiction, transportation, low edu. Level, literacy, decrease access to med. care, fpc, rehab)? @ -No Was there de-escalation of care discussed even if they declined (Discuss DNR or withdrawal of care, Hospice)? DNR status @ -No What co-morbidities impacted this encounter? (DM, HTN, Smoking, COPD, CAD, Cancer, CVA, ARF, Chemo, Hep., AIDS, mental health diagnosis, sleep apnea, morbid obesity)? @ -None Was patient admitted / discharged? Hospital course, mention meds given and route, prescriptions, significant lab abnormalities, going to OR and other pertinent info. @ -44-year-old female with new onset neuropathy. She currently takes gabapentin 600 mg 3 times daily. Laboratory evaluation is unremarkable. Patient given morphine with improvement of her symptoms. Patient told to follow-up with her primary care doctor and/or neurologist for outpatient michel gement of neuropathy. Undiagnosed new problem with uncertain prognosis? @ -No Drug Therapy requiring intensive monitoring for toxicity (Heparin, Nitro, Insulin, Cardizem)? @ -No Were any procedures done? @ -No Diagnosis/symptom? Acute, or Chronic, or Acute on Chronic? Uncomplicated (without systemic symptoms) or Complicated (systemic symptoms)? @ -Neuropathy Side effects of treatment? @ -No Exacerbation, Progression, or Severe Exacerbation? @ -No Poses a threat to life or bodily function? How? (Chest pain, [place], [place], pneumonia, PE, COPD, DKA, ARF, appy, cholecystitis, CVA, Diverticulitis, Homicidal, Suicidal, threat to staff... and all critical care pts) @ -No - Lab Data Result diagrams: 03/29/24 16:17 03/29/24 16:17 Lab Results 03/29/24 03/29/24 Range/Units 16:17 16:17 WBC 10.9 H (3.8-10.6) k/uL RBC 4.52 (3.80-5.40) m/uL Hgb 14.1 (11.4-16.0) gm/dL Hct 45.3 (34.0-46.0) % MCV 100.1 H (80.0-100.0) fL MCH 31.2 (25.0-35.0) pg MCHC 31.2 (31.0-37.0) g/dL RDW 15.7 H (11.5-15.5) % Plt Count 513 H (150-450) k/uL MPV 7.8 Neutrophils % 67 % Lymphocytes % 23 % Monocytes % 7 % Eosinophils % 1 % Basophils % 1 % Neutrophils # 7.3 (1.3-7.7) k/uL Lymphocytes # 2.6 (1.0-4.8) k/uL Monocytes # 0.7 (0-1.0) k/uL Eosinophils # 0.1 (0-0.7) k/uL Basophils # 0.1 (0-0.2) k/uL Macrocytosis Slight Sodium 138 (137-145) mmol/L Potassium 4.1 (3.5-5.1) mmol/L Chloride 103 (98-107) mmol/L Carbon Dioxide 30 (22-30) mmol/L Anion Gap 5 mmol/L BUN 5 L (7-17) mg/dL Creatinine 0.44 L (0.52-1.04) mg/dL Est GFR (CKD-EPI)AfAm >90 (>60 ml/min/1.73 sqM) Est GFR (CKD-EPI)NonAf >90 (>60 ml/min/1.73 sqM) Glucose 125 H (74-99) mg/dL Calcium 9.2 (8.4-10.2) mg/dL Magnesium 1.7 (1.6-2.3) mg/dL Disposition Clinical Impression: Neuropathy Disposition: HOME SELF-CARE Condition: Good Instructions (If sedation given, give patient instructions): Peripheral Neuropathy (ED) Is patient prescribed a controlled substance at d/c from ED?: No Referrals: Kate Lopez MD [Primary Care Provider] - 1-2 days Time of Disposition: 16:45
[2024-03-29] MEDS: MORPHINE SULFATE 4 MG/ML SYRINGE IV STA (16:21)
[2024-03-29 16:26] LABS: Basophils # (A) 0.1 k/uL (0-0.2); Basophils % (A) 1 %; Eosinophils # (A) 0.1 k/uL (0-0.7); Eosinophils % (A) 1 %; HCT 45.3 % (34.0-46.0); HGB 14.1 gm/dL (11.4-16.0); Lymphocytes # (A) 2.6 k/uL (1.0-4.8); Lymphocytes % (A) 23 %; MCH 31.2 pg (25.0-35.0); MCHC 31.2 g/dL (31.0-37.0); MCV 100.1 fL (80.0-100.0); Macrocytosis Slight; Mean Platelet Volume 7.8; Monocytes # (A) 0.7 k/uL (0-1.0); Monocytes % (A) 7 %; Neutrophils # (A) 7.3 k/uL (1.3-7.7); Neutrophils % (A) 67 %; Platelet Count 513 k/uL (150-450); RBC 4.52 m/uL (3.80-5.40); RDW 15.7 % (11.5-15.5); WBC 10.9 k/uL (3.8-10.6)
[2024-03-29 16:36] LABS: African American GFR (CKD) >90 (>60 ml/min/1.73 sqM); Anion Gap 5 mmol/L; Blood Urea Nitrogen 5 mg/dL (7-17); Calcium 9.2 mg/dL (8.4-10.2); Carbon Dioxide 30 mmol/L (22-30); Chloride 103 mmol/L (98-107); Glucose 125 mg/dL (74-99); Magnesium 1.7 mg/dL (1.6-2.3); Non-African American GFR(CKD) >90 (>60 ml/min/1.73 sqM); Potassium 4.1 mmol/L (3.5-5.1); Sodium 138 mmol/L (137-145)
[2024-03-29 16:54] VITALS: BP 136/80; PULSE 100; RESP 18
[2024-03-29] MEDS: ACET/COD 300 MG/30 MG STARTER PACK 6 TAB BTL PO STA (16:55)
== END 2024-03-29 17:01 | disposition home or self-care (01) ==
LOC: EC 15:23
DX: G62.9 Polyneuropathy, unspecified (principal); F17.290 Nicotine dependence, other tobacco product, uncomplicated; Z88.0 Allergy status to penicillin; Z88.2 Allergy status to sulfonamides
CPT/HCPCS: 99285; 96374 ×2; 36415; 80048; 83735; 85025; 99284; J2270

== ENCOUNTER 2024-04-06 22:50 | Emergency (ER) | payer OTHER ==
--- NOTE | 2024-04-06 22:57 | ED ---
General Adult HPI - General Stated complaint: Weakness Time Seen by Provider: 04/06/24 22:52 Source: RN notes reviewed - History of Present Illness Initial comments: 44-year-old female presenting to the ED with a chief complaint of neuropathy. Patient reports she had recent diagnosis of neuropathy. Has been taking gabapentin for this. Patient notes numbness and tingling/pain in the bilateral upper and lower extremities. Despite taking gabapentin at home, reports no significant improvement prompting presentation to the ED for further evaluation. Reports her follow-up with her neurologist this this coming Sunday. No chest pain or shortness of breath. No fever or chills. No other complaints at this time. - Related Data Home Medications Medication Instructions Recorded Confirmed Atorvastatin Calcium [Lipitor] 40 mg PO HS 01/05/22 01/08/22 Cyclobenzaprine [Flexeril] 10 mg PO TID 01/05/22 01/08/22 Fluticasone Nasal [place] [Flonase 1 spray EA NOSTRIL DAILY 01/05/22 01/08/22 Nasal [place]] Gabapentin [Neurontin] 600 mg PO TID 01/05/22 01/08/22 Ibuprofen [Motrin] 800 mg PO TID PRN 01/05/22 01/08/22 Lurasidone [Latuda] 80 mg PO HS 01/05/22 01/08/22 Multivitamins, Thera [Multivitamin 1 tab PO DAILY 01/05/22 01/08/22 (formulary)] Omeprazole 20 mg PO DAILY 01/05/22 01/08/22 Propranolol HCl 20 mg PO TID 01/05/22 01/08/22 Venlafaxine HCl ER [Effexor Xr] 150 mg PO DAILY 01/05/22 01/08/22 hydrOXYzine pamoate [Vistaril] 150 mg PO HS 01/05/22 01/08/22 traZODone HCL 200 mg PO HS 01/05/22 01/08/22 Allergies Allergy/AdvReac Type Severity Reaction Status Date / Time Penicillins Allergy Anaphylaxis Verified 04/06/24 23:03 Sulfa (Sulfonamide Allergy Rash/Hives Verified 04/06/24 23:03 Antibiotics) Review of Systems ROS Statement: Those systems with pertinent positive or pertinent negative responses have been documented in the HPI. ROS Other: All systems not noted in ROS Statement are negative. Past Medical History Past Medical History: GERD/Reflux, Hyperlipidemia, Hypertension, Supraventricular Tachycardia (SVT) Additional Past Medical History / Comment(s): chronic back pain History of Any Multi-Drug Resistant Organisms: None Reported Past Surgical History: Orthopedic Surgery Past Psychological History: Bipolar, Depression Smoking Status: Vaper Past Alcohol Use History: None Reported Past Drug Use History: None Reported General Exam General appearance: alert, in no apparent distress Eye exam: Present: normal appearance Neck exam: Present: normal inspection Respiratory exam: Present: normal lung sounds bilaterally Cardiovascular Exam: Present: regular rate GI/Abdominal exam: Present: soft, normal bowel sounds. Absent: distended, tenderness, guarding, rebound, rigid Extremities exam: Present: other (Strength and sensation equal and intact in bilateral upper lower extremities. Radial pulses, DP/PT pulses intact.) Neurological exam: Present: alert, oriented X3 Skin exam: Present: warm, dry Course Vital Signs 04/06/24 04/06/24 04/06/24 22:59 23:53 23:55 Temperature 98.3 F 98.3 F Pulse Rate 115 H 103 H Respiratory 18 19 16 Rate Blood Pressure 104/86 118/85 O2 Sat by Pulse 97 95 Oximetry 04/07/24 01:11 Temperature Pulse Rate 103 H Respiratory 17 Rate Blood Pressure 132/84 O2 Sat by Pulse 97 Oximetry Medical Decision Making - Medical Decision Making Was pt. sent in by a medical professional or institution (JAZ Palomo, GRANTS OFFICER, urgent care, hospital, or retirement...) When possible be specific @ -No Did you speak to anyone other than the patient for history (EMS, parent, family, police, friend...)? What history was obtained from this source @ -No Did you review nursing and triage notes (agree or disagree)? Why? @ -I reviewed and agree with nursing and triage notes Were old charts reviewed (outside hosp., previous admission, EMS record, old EKG, old radiological studies, urgent care reports/EKG's, retirement records)? Report findings @ -No old charts were reviewed Differential Diagnosis (chest pain, altered mental status, abdominal pain women, abdominal pain men, vaginal bleeding, weakness, fever, dyspnea, syncope, headache, dizziness, GI bleed, back pain, seizure, CVA, palpatations, mental he alth, musculoskeletal)? @ -Differential Weakness: Hypoglycemia, shock, sepsis, hyponatremia, anemia, infection, HI, ETOH, adverse medicine reaction, overdose, stroke, this is not meant to be an all-inclusive list. EKG interpreted by me (3pts min.). @ -None X-rays interpreted by me (1pt min.). @ -None done CT interpreted by me (1pt min.). @ -None done U/S interpreted by me (1pt. min.). @ -None done What testing was considered but not performed or refused? (CT, X-rays, U/S, labs)? Why? @ -None What meds were considered but not given or refused? Why? @ -None Did you discuss the management of the patient with other professionals (professionals i.e. , PA, GRANTS OFFICER, lab, RT, psych nurse, social worker clinical, stain applicator, teacher, purchasing officer, business case analyst)? Give summary @ -No Was smoking cessation discussed for >3mins.? @ -No Was critical care preformed (if so, how long)? @ -No Were there social determinants of health that impacted care today? How? (Homelessness, low income, unemployed, alcoholism, drug addiction, transportation, low edu. Level, literacy, decrease access to med. care, [facility], rehab)? @ -No Was there de-escalation of care discussed even if they declined (Discuss DNR or withdrawal of care, Hospice)? DNR status @ -No What co-morbidities impacted this encounter? (DM, HTN, Smoking, COPD, CAD, Cancer, CVA, ARF, Chemo, Hep., AIDS, mental health diagnosis, sleep apnea, morbid obesity)? @ -None Was patient admitted / discharged? Hospital course, mention meds given and route, prescriptions, significant lab abnormalities, going to OR and other pert inent info. @ -Discharge 44-year-old female presenting to the ED with complaints of neuropathy. Reports was recently diagnosed with neuropathy with symptoms of numbness/tingling of her hands and feet. Has been placed on gabapentin however despite this notes continued pain/paresthesias. Laboratory studies reviewed. Labs largely unremarkable. Patient provided analgesia here with improvement of symptoms. Discharged home in stable condition with instructions to follow-up with her neurologist. Discussed return precautions with patient who verbalized agreement. Undiagnosed new problem with uncertain prognosis? @ -No Drug Therapy requiring intensive monitoring for toxicity (Heparin, Nitro, Insulin, Cardizem)? @ -No Were any procedures done? @ -No Diagnosis/symptom? @ -Neuropathy Acute, or Chronic, or Acute on Chronic? @ -Acute Uncomplicated (without systemic symptoms) or Complicated (systemic symptoms)? @ -Uncomplicated Side effects of treatment? @ -No Exacerbation, Progression, or Severe Exacerbation? @ -No Poses a threat to life or bodily function? How? (Chest pain, [place], [place], pneumonia, PE, COPD, DKA, ARF, appy, cholecystitis, CVA, Diverticulitis, Homicidal, Suicidal, threat to staff... and all critical care pts) @ -No - Lab Data Result diagrams: 04/06/24 23:32 04/06/24 23:32 Lab Results 04/06/24 04/06/24 Range/Units 23:32 23:32 WBC 12.6 H (3.8-10.6) k/uL RBC 4.58 (3.80-5.40) m/uL Hgb 14.5 (11.4-16.0) gm/dL Hct 46.4 H (34.0-46.0) % MCV 101.2 H (80.0-100.0) fL MCH 31.7 (25.0-35.0) pg MCHC 31.3 (31.0-37.0) g/dL RDW 15.7 H (11.5-15.5) % Plt Count 434 (150-450) k/uL MPV 9.3 Macrocytosis Slight Sodium 141 (137-145) mmol/L Potassium 5.9 H (3.5-5.1) mmol/L Chloride 103 (98-107) mmol/L Carbon Dioxide 16 L (22-30) mmol/L Anion Gap 22 mmol/L BUN 6 L (7-17) mg/dL Creatinine 0.47 L (0.52-1.04) mg/dL Est GFR (CKD-EPI)AfAm >90 (>60 ml/min/1.73 sqM) Est GFR (CKD-EPI)NonAf >90 (>60 ml/min/1.73 sqM) Glucose 94 (74-99) mg/dL Calcium 9.1 (8.4-10.2) mg/dL Total Bilirubin 1.8 H (0.2-1.3) mg/dL AST 176 H (14-36) U/L ALT 56 H (4-34) U/L Alkaline Phosphatase 209 H (38-126) U/L Total Protein 9.6 H (6.3-8.2) g/dL Albumin 4.9 (3.5-5.0) g/dL Disposition Clinical Impression: Neuropathy Disposition: HOME SELF-CARE Condition: Good Additional Instructions: Please return to the Emergency Department if symptoms worsen or any other concerns. Please follow-up with your PCP/neurologist. Is patient prescribed a controlled substance at d/c from ED?: No Referrals: Kate Lopez MD [Primary Care Provider] - 1-2 days Time of Disposition: 02:10
[2024-04-06] MEDS: HYDROmorphone 0.5 MG/0.5 ML SYRINGE IVP STA (23:59)
[2024-04-07 00:01] LABS: HCT 46.4 % (34.0-46.0); HGB 14.5 gm/dL (11.4-16.0); MCH 31.7 pg (25.0-35.0); MCHC 31.3 g/dL (31.0-37.0); MCV 101.2 fL (80.0-100.0); Macrocytosis Slight; Mean Platelet Volume 9.3; Platelet Count 434 k/uL (150-450); RBC 4.58 m/uL (3.80-5.40); RDW 15.7 % (11.5-15.5); WBC 12.6 k/uL (3.8-10.6)
[2024-04-07 00:20] LABS: ALT 56 U/L (4-34); AST 176 U/L (14-36); African American GFR (CKD) >90 (>60 ml/min/1.73 sqM); Albumin 4.9 g/dL (3.5-5.0); Alkaline Phosphatase 209 U/L (38-126); Anion Gap 22 mmol/L; Blood Urea Nitrogen 6 mg/dL (7-17); Calcium 9.1 mg/dL (8.4-10.2); Carbon Dioxide 16 mmol/L (22-30); Chloride 103 mmol/L (98-107); Glucose 94 mg/dL (74-99); Non-African American GFR(CKD) >90 (>60 ml/min/1.73 sqM); Sodium 141 mmol/L (137-145); Total Bilirubin 1.8 mg/dL (0.2-1.3); Total Protein 9.6 g/dL (6.3-8.2)
[2024-04-07 00:44] LABS: Potassium 5.9 mmol/L (3.5-5.1)
[2024-04-07 02:46] VITALS: BP 133/85; PULSE 98; RESP 19; TEMP 98.4
[2024-04-07 02:59] LABS: Eosinophils # (M) 0.25 k/uL (0-0.7); Lymphocytes # (M) 4.16 k/uL (1.0-4.8); Monocytes # (M) 0.38 k/uL (0-1.0); Neutrophils # (M) 7.81 k/uL (1.3-7.7); Neutrophils % (M) 62 %; Nucleated Red Blood Cells 0 /100 WBC (0-0); Total Cells Counted 100
[2024-04-07 03:02] LABS: RBC Morphology Normal
== END 2024-04-07 02:44 | disposition home or self-care (01) ==
LOC: EC 22:50
DX: G62.9 Polyneuropathy, unspecified (principal); Z88.0 Allergy status to penicillin; Z88.2 Allergy status to sulfonamides
CPT/HCPCS: 36415; 80053; 85025; 96374; 99285